=== PATIENT | female | born 1995 | race American Indian/Alaskan Native ===

== ENCOUNTER 2018-02-03 18:11 | Emergency (ER) | payer OTHER ==
[2018-02-03 18:42] VITALS: BP 108/62
[2018-02-03] MEDS ORDERED: MOTRIN PO ONE (18:42)
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
== END 2018-02-03 22:07 | disposition home or self-care (01) ==
LOC: ED 18:11
DX: S50.02XA Contusion of left elbow, initial encounter (principal); R51 Headache; E11.9 Type 2 diabetes mellitus without complications; V49.49XA Driver injured in collision with other motor vehicles in traffic accident, initial encounter; Y93.89 Activity, other specified; Y92.89 Other specified places as the place of occurrence of the external cause; Y99.8 Other external cause status
CPT/HCPCS: 99282

== ENCOUNTER 2018-06-02 15:46 | Emergency (ER) | payer OTHER ==
[2018-06-02 15:54] VITALS: BP 112/44
--- NOTE | 2018-06-02 16:23 | Emergency Department Report ---
ED Female HPI - General Chief complaint: Abdominal Pain Stated complaint: PELVIC PAIN Source: patient Mode of arrival: Ambulatory Limitations: No Limitations - History of Present Illness Initial comments: This is a 23-year-old female who presents with elevated in since yesterday. Last menstrual period was 02/11/2019, 0. She states she took a home test yesterday which was negative. She was seen by her FILLER WIPER Dr. Rockwell who placed her on Provera. Patient states she has not been able to mushroom picker prescription. She is now reporting pelvic pain that is intermittent since yesterday and nausea without vomiting. She denies dysuria, frequency, urgency, vaginal discharge or bleeding. MD Complaint: pelvic pain Onset/Timin -: days(s) Location: suprapubic Radiation: non-radiating Severity: moderate Severity scale (0 -10): 7 Quality: sharp Consistency: intermittent Improves with: none Worsens with: none Are you Now?: No Last Menstrual Period: 02/11/18 EDC: 11/18/18 Associated Symptoms: denies other symptoms - Related Data Sexually active: Yes : 0 Para: 0 A: 0 Previous Rx's Medication Instructions Recorded Last Taken Type Ibuprofen [Motrin 600 MG tab] 600 mg PO Q8H PRN #30 tablet 02/03/18 Unknown Rx Allergies Allergy/AdvReac Type Severity Reaction Status Date / Time No Known Allergies Allergy Verified 06/02/18 15:52 ED Review of Systems ROS: Stated complaint: PELVIC PAIN Other details as noted in HPI Constitutional: denies: chills, fever Respiratory: denies: cough, shortness of breath, wheezing Cardiovascular: denies: chest pain, palpitations Gastrointestinal: abdominal pain (pelvic pain), nausea. denies: diarrhea Genitourinary: denies: urgency, dysuria, discharge Musculoskeletal: denies: back pain Neurological: denies: headache, weakness, paresthesias Psychiatric: denies: anxiety, depression ED Past Medical Hx - Past Medical History Previous Medical History?: No Hx Diabetes: Yes (prediabetic) - Surgical History Past Surgical History?: No - Social History Smoking Status: Never Smoker Substance Use Type: None - Medications Home Medications: Home Medications Medication Instructions Recorded Confirmed Last Taken Type Ibuprofen [Motrin 600 MG tab] 600 mg PO Q8H PRN #30 tablet 02/03/18 Unknown Rx ED Physical Exam - General Limitations: No Limitations General appearance: alert, in no apparent distress - Respiratory Respiratory exam: Present: normal lung sounds bilaterally. Absent: respiratory distress - Cardiovascular Cardiovascular Exam: Present: regular rate, normal rhythm. Absent: systolic murmur, diastolic murmur, rubs, gallop - GI/Abdominal GI/Abdominal exam: Present: soft, tenderness (suprapubic tenderness), normal bowel sounds. Absent: distended, guarding, rebound, rigid, organomegaly, mass, pulsatile mass, hernia - External exam: Present: normal external exam Speculum exam: Present: vaginal discharge (clear discharge). Absent: erythema, cervical discharge, vaginal bleeding, foreign body, tissue, laceration Bi-manual exam: Present: normal bi-manual exam - Back Exam Back exam: Absent: CVA tenderness (R), CVA tenderness (L), rash noted - Neurological Exam Neurological exam: Present: alert, oriented X3, normal gait - Psychiatric Psychiatric exam: Present: normal affect, normal mood - Skin Skin exam: Present: warm, dry, intact, normal color. Absent: rash ED Course Vital Signs 06/02/18 15:52 Temperature 98.8 F Pulse Rate 66 Respiratory 16 Rate Blood Pressure 112/44 O2 Sat by Pulse 99 Oximetry ED Medical Decision Making - Lab Data Lab Results 06/02/18 Range/Units 16:00 Urine Color Yellow (Yellow) Urine Turbidity Clear (Clear) Urine pH 6.0 (5.0-7.0) Ur Specific [place] 1.011 (1.003-1.030) Urine Protein <15 mg/dl (Negative) mg/dL Urine Glucose (UA) Neg (Negative) mg/dL Urine Ketones Neg (Negative) mg/dL Urine Blood Neg (Negative) Urine Nitrite Neg (Negative) Urine Bilirubin Neg (Negative) Urine Urobilinogen < 2.0 (<2.0) mg/dL Ur Leukocyte Esterase Neg (Negative) Urine WBC (Auto) < 1.0 (0.0-6.0) /HPF Urine RBC (Auto) < 1.0 (0.0-6.0) /HPF U Epithel Cells (Auto) 1.0 (0-13.0) /HPF Urine HCG, Qual Negative (Negative) - Radiology Data Radiology results: report reviewed FINAL REPORT EXAM: US PELVIC COMPLETE HISTORY: pelvic pain TECHNIQUE: Real-time sonography was performed of the pelvis transabdominally. Images are submitted for interpretation. PRIORS: None. FINDINGS: The uterus appears normal measuring 7.1 x 3.3 x 4.4 cm. The endometrial stripe appears normal measuring 8 mm. The right ovary appears normal measuring 3.1 x 1.9 x 3.4 cm. Multiple normal follicles are demonstrated. The left ovary appears normal measuring 3.7 x 2.3 x 3.1 cm. Multiple normal follicles are demonstrated. Color Doppler evaluation of the ovaries shows flow bilaterally. There is no free pelvic fluid. IMPRESSION: Normal pelvic ultrasound. - Medical Decision Making Patient was examined by me. Vitals are normal and patient is in no acute distress. Obtained labs and pelvic transvaginal ultrasound. Ultrasound dictated by radiologist report reviewed by myself. Wet prep obtained via pelvic exam, negative Trichomonas, clue cells, and yeast. Gonorrhea and chlamydia pending. All of the labs are unremarkable. Normal pelvic ultrasound. Amenorrhea Referral to a bagel maker for continued care. Patient informed of results. Patient discharged home in stable condition. Follow up with PCP in 2-3 days. Critical care attestation.: If time is entered above; I have spent that time in minutes in the direct care of this critically ill patient, excluding procedure time. ED Disposition Clinical Impression: Pelvic pain, Nausea, Amenorrhea Disposition: TO HOME OR SELFCARE Is pt being admited?: No Does the pt Need Aspirin: No Condition: Stable Instructions: Abdominal Pain (ED) Additional Instructions: Follow-up with your FILLER WIPER for further testing. Referrals: SAMSON EMERY MD [Primary Care Provider] - 3-5 Days [facility] [Provider Group] - 3-5 Days [facility] [Provider Group] - 3-5 Days Forms: Work/School Release Form(ED) Time of Disposition: 20:25
[2018-06-02 16:32] LABS: Bilirubin,Urine NEG (Negative); Blood,Urine NEG (Negative); Color,Urine Yellow (Yellow); Protein,Urine <15 mg/dL mg/dL (Negative); RBC,Urine < 1.0 /HPF (0.0-6.0); Urobilinogen,Urine < 2.0 mg/dL (<2.0); WBC,Urine < 1.0 /HPF (0.0-6.0)
[2018-06-02 16:36] LABS: HCG Qualitative,Urine Negative (Negative)
--- NOTE | 2018-06-02 20:18 | Ultrasound Report ---
FINAL REPORT EXAM: US PELVIC COMPLETE HISTORY: pelvic pain TECHNIQUE: Real-time sonography was performed of the pelvis transabdominally. Images are submitted f or interpretation. PRIORS: None. FINDINGS: The uterus appears normal measuring 7.1 x 3.3 x 4.4 cm. The endometrial stripe appears normal measuri ng 8 mm. The right ovary appears normal measuring 3.1 x 1.9 x 3.4 cm. Multiple normal follicles are demonstrat ed. The left ovary appears normal measuring 3.7 x 2.3 x 3.1 cm. Multiple normal follicles are demonstrate d. Color Doppler evaluation of the ovaries shows flow bilaterally. There is no free pelvic fluid. IMPRESSION: Normal pelvic ultrasound.
--- NOTE | 2018-06-02 20:20 | Ultrasound Report ---
FINAL REPORT EXAM: US TRANSVAGINAL HISTORY: pelvic pain TECHNIQUE: Real-time sonography was performed of the pelvis endovaginally. Images are submitted for interpretation. PRIORS: None. FINDINGS: The uterus appears normal measuring 7.1 x 3.3 x 4.4 cm. The endometrial stripe appears normal measuri ng 8 mm. The right ovary appears normal measuring 3.1 x 1.9 x 3.4 cm. Multiple normal follicles are demonstrat ed. The left ovary appears normal measuring 3.7 x 2.3 x 3.1 cm. Multiple normal follicles are demonstrate d. Color Doppler evaluation of the ovaries shows flow bilaterally. There is no free pelvic fluid. IMPRESSION: Normal pelvic ultrasound.
== END 2018-06-02 20:35 | disposition home or self-care (01) ==
LOC: ED 15:46
DX: N91.2 Amenorrhea, unspecified (principal); R10.2 Pelvic and perineal pain; R11.0 Nausea; E11.9 Type 2 diabetes mellitus without complications
CPT/HCPCS: 76830; 76856; 81001; 81025; 87210; 87591

== ENCOUNTER 2019-02-03 00:25 | Emergency (ER) | payer OTHER ==
[2019-02-03 00:42] VITALS: BP 106/67
[2019-02-03 01:47] LABS: Bacteria,Urine 1+ /HPF (Negative); Bilirubin,Urine NEG (Negative); Blood,Urine MOD (Negative); Color,Urine Yellow (Yellow); Mucus,Urine 1+ /HPF; Protein,Urine <15 mg/dL mg/dL (Negative); Urobilinogen,Urine < 2.0 mg/dL (<2.0)
[2019-02-03 01:48] LABS: HCG Qualitative,Urine Negative (Negative)
[2019-02-03] MEDS ORDERED: LIDOCAINE-MPF (1%) 10 MG/1 ML VIAL 5 ML INFILTRATI ONE (03:20)
[2019-02-03] MEDS ORDERED: AZITHROMYCIN 1 GM ORAL PWDR PACKET PO ONE (03:20)
--- NOTE | 2019-02-03 03:22 | Emergency Department Report ---
ED Female HPI - General Chief complaint: Abdominal Pain Stated complaint: STOMACH PAIN VAG DISCHARGE Time Seen by Provider: 02/03/19 03:07 Source: patient Mode of arrival: Ambulatory Limitations: No Limitations - History of Present Illness Initial comments: Patient is a 23-year-old female who presents to emergency room with complaints of intermittent suprapubic abdominal cramping that began 2 weeks ago. She states that she has associated clear/cloudy vaginal discharge which has a foul odor. Patient denies any fever, nausea, vomiting, diarrhea, chills, dysuria, any other symptoms. She was tolerating by mouth intake with no difficulty. She states that she does have an UI SOFTWARE ENGINEER that she can follow up with this week. She denies any past medical history or allergies to medications. Patient states that she is sexually active and is concerned for STDs. She denies any lesions or blisters present on the vagina. - Related Data Previous Rx's Medication Instructions Recorded Last Taken Type Ibuprofen [Motrin 600 MG tab] 600 mg PO Q8H PRN #30 tablet 02/03/18 Unknown Rx cephALEXin [Keflex] 500 mg PO BID 5 Days #10 capsule 02/03/19 Unknown Rx metroNIDAZOLE [Flagyl] 500 mg PO BID 7 Days #14 tab 02/03/19 Unknown Rx Allergies Allergy/AdvReac Type Severity Reaction Status Date / Time No Known Allergies Allergy Verified 06/02/18 15:52 ED Review of Systems ROS: Stated complaint: STOMACH PAIN VAG DISCHARGE Other details as noted in HPI Comment: All other systems reviewed and negative ED Past Medical Hx - Past Medical History Previous Medical History?: Yes Hx Diabetes: Yes (prediabetic) - Surgical History Past Surgical History?: No - Social History Smoking Status: Never Smoker Substance Use Type: Marijuana - Medications Home Medications: Home Medications Medication Instructions Recorded Confirmed Last Taken Type Ibuprofen [Motrin 600 MG tab] 600 mg PO Q8H PRN #30 tablet 02/03/18 Unknown Rx cephALEXin [Keflex] 500 mg PO BID 5 Days #10 capsule 02/03/19 Unknown Rx metroNIDAZOLE [Flagyl] 500 mg PO BID 7 Days #14 tab 02/03/19 Unknown Rx ED Physical Exam - General Limitations: No Limitations General appearance: alert, in no apparent distress - Head Head exam: Present: atraumatic, normocephalic - Eye Eye exam: Present: normal appearance - ENT ENT exam: Present: mucous membranes moist - Respiratory Respiratory exam: Present: normal lung sounds bilaterally. Absent: respiratory distress, wheezes, rales, rhonchi, stridor, chest wall tenderness, accessory muscle use, decreased breath sounds, prolonged expiratory - Cardiovascular Cardiovascular Exam: Present: regular rate, normal rhythm, normal heart sounds. Absent: systolic murmur, diastolic murmur, rubs, gallop - GI/Abdominal GI/Abdominal exam: Present: soft, normal bowel sounds. Absent: distended, tenderness, guarding, rebound, rigid - Speculum exam: Present: other (pt deferred) - Back Exam Back exam: Absent: CVA tenderness (R), CVA tenderness (L) - Neurological Exam Neurological exam: Present: alert, oriented X3 - Psychiatric Psychiatric exam: Present: normal affect, normal mood - Skin Skin exam: Present: warm, dry, intact ED Course Vital Signs 02/03/19 00:40 Temperature 98.0 F Pulse Rate 67 Respiratory 18 Rate Blood Pressure 106/67 O2 Sat by Pulse 100 Oximetry ED Medical Decision Making - Medical Decision Making Patient is a 23-year-old female who presents to emergency room with complaints of intermittent suprapubic abdominal cramping that began 2 weeks ago. She states that she has associated clear/cloudy vaginal discharge which has a foul odor. Patient denies any fever, nausea, vomiting, diarrhea, chills, dysuria, any other symptoms. She was tolerating by mouth intake with no difficulty. She states that she does have an UI SOFTWARE ENGINEER that she can follow up with this week. She denies any past medical history or allergies to medications. Patient states that she is sexually active and is concerned for STDs. She denies any lesions or blisters present on the vagina. pt is afebrile, no N/V, tolerating PO intake, no severe abd pain, no abdominal TTP, no guarding, no rebound, low concern for PID or TOA. UA shows bacteria and trace leukocyte esterase. Urine is negative. Patient treated prophylactically for G/C with ceftriaxone and azithromycin. Patient given prescription for Flagyl and Keflex. advised patient to take medication as prescribed. follow up with her UI SOFTWARE ENGINEER in the next 2-3 days. Please receive a full STD panel by her UI SOFTWARE ENGINEER or health department. Abstain from sexual intercourse for 10 days. please partner tested and treated as well. return to the emergency room for any new or worsening symptoms. - Differential Diagnosis STD, UTI, Vaginitis Critical care attestation.: If time is entered above; I have spent that time in minutes in the direct care of this critically ill patient, excluding procedure time. ED Disposition Clinical Impression: Vaginal discharge, Suprapubic cramping Disposition: TO HOME OR SELFCARE Is pt being admited?: No Does the pt Need Aspirin: No Condition: Stable Instructions: Sexually Transmitted Diseases (ED), Safe Sex (ED) Additional Instructions: take medication as prescribed. follow up with your UI SOFTWARE ENGINEER in the next 2-3 days. Please receive a full STD panel by your UI SOFTWARE ENGINEER or health department. Abstain from sexual intercourse for 10 days. please partner tested and treated as well. return to the emergency room for any new or worsening symptoms Prescriptions: metroNIDAZOLE [Flagyl] 500 mg PO BID 7 Days #14 tab cephALEXin [Keflex] 500 mg PO BID 5 Days #10 capsule Referrals: your, UI SOFTWARE ENGINEER [Other] - 2-[address] [facility] [place] [facility] [Outside] - 2-3 Days Time of Disposition: 03:28 Print Language: POLISH
== END 2019-02-03 04:10 | disposition home or self-care (01) ==
LOC: ED 00:25
DX: N89.8 Other specified noninflammatory disorders of vagina (principal); E11.9 Type 2 diabetes mellitus without complications; F12.10 Cannabis abuse, uncomplicated; Z79.1 Long term (current) use of non-steroidal anti-inflammatories (NSAID); Z79.899 Other long term (current) drug therapy
CPT/HCPCS: 81001; 81025; 87086; 96372; 99284; J0696

== ENCOUNTER 2019-08-03 11:29 | Emergency (ER) | payer OTHER ==
--- NOTE | 2019-08-03 11:46 | Emergency Department Report ---
Chief Complaint: Urogenital-Female Stated Complaint: PELVIC PAIN/DISCHARGE Time Seen by Provider: 08/03/19 11:43 - HPI History of Present Illness: CC VAG DC NOT SEXUALLY ACTIVE WITH MEN JUST ENDED MENSES NO BACK PAIN NO FEVER/ CHILLS NO ABD PAIN PCP CLOSED; DID NOT CALL OBGYN; URGENT CARE TOO EXPENSIVE 1 SEXUAL PARTNER- FEMALE NO SYMPTOMS PMH PRE DM RX ALLERGY LMP 2 DAYS AGO- NO SEX WITH MEN - ROS Review of Systems: VAG DC - Exam Vital Signs: NORMAL Physical Exam: A/O NAD AMBULATORY ON PHONE DURING H/P ABD SNT NO CVA TENDERNESS MSE screening note: Focused history and physical exam performed. Due to findings the following was ordered: ED Disposition for MSE Condition: Stable
== END 2019-08-03 12:07 | disposition home or self-care (01) ==
LOC: ED 11:29
DX: N89.8 Other specified noninflammatory disorders of vagina (principal); Z53.21 Procedure and treatment not carried out due to patient leaving prior to being seen by health care provider

== ENCOUNTER 2020-06-28 20:02 | Emergency (ER) | payer SELFPAY ==
[2020-06-28 20:11] VITALS: BP 119/74
[2020-06-28] MEDS ORDERED: MECLIZINE 25 MG TAB PO ONE (20:13)
[2020-06-28] MEDS ORDERED: ASPIRIN EC 81 MG TAB PO ONE (20:13)
[2020-06-28] MEDS ORDERED: FAMOTIDINE 20 MG TAB PO ONE (20:13)
--- NOTE | 2020-06-28 20:40 | Emergency Department Report ---
ED General Adult HPI - General Chief complaint: Dyspnea/Respdistress Stated complaint: SOB/CHEST PAIN/DIZZINESS Source: patient Mode of arrival: Ambulatory Limitations: No Limitations - History of Present Illness Initial comments: Patient is a 25-year-old -Japanese female with no past medical history presents to the ED with complaint of acute onset persistent chest pain, shortness of breath, lightheadedness persistently for the last 2 months, worse in the last 1 week. Patient states that she has been taking [id number] medication with no relief. Patient denies dizziness, syncope, palpitations, sore throat, nausea, vomiting, diarrhea, abdominal pain, traumatic injury, heavy lifting, change in vision, headache or neck pain, cough, fever and chills. MD Complaint: Lightheadedness, chest pain, dyspnea, headache -: Sudden, month(s) (2) Location: chest Radiation: non-radiation Severity scale (0 -10): 5 Quality: aching, dull Consistency: intermittent Improves with: none Worsens with: movement Associated Symptoms: denies other symptoms, chest pain, headaches, loss of appetite, malaise, shortness of breath. denies: confusion, cough, diaphoresis, fever/chills, nausea/vomiting, rash, seizure, other Treatments Prior to Arrival: none - Related Data Previous Rx's Medication Instructions Recorded Last Taken Type Ibuprofen [Motrin 600 MG tab] 600 mg PO Q8H PRN #30 tablet 02/03/18 Unknown Rx cephALEXin [Keflex] 500 mg PO BID 5 Days #10 capsule 02/03/19 Unknown Rx metroNIDAZOLE [Flagyl] 500 mg PO BID 7 Days #14 tab 02/03/19 Unknown Rx Nitrofurantoin Kay/M-Cryst 100 mg PO Q12HR 7 Days #14 capsule 01/25/20 Unknown Rx [Macrobid CAP] Famotidine [Pepcid] 20 mg PO BID #60 tablet 06/29/20 Unknown Rx Meclizine HCl 25 mg PO Q8H PRN #30 tablet 06/29/20 Unknown Rx Naproxen 500 mg PO Q12H PRN #20 tablet 06/29/20 Unknown Rx hydrOXYzine PAMOATE [Vistaril] 25 mg PO Q8HR PRN #30 capsule 06/29/20 Unknown Rx Allergies Allergy/AdvReac Type Severity Reaction Status Date / Time No Known Allergies Allergy Verified 08/03/19 11:41 ED Review of Systems ROS: Stated complaint: SOB/CHEST PAIN/DIZZINESS Other details as noted in HPI Constitutional: denies: chills, fever Eyes: denies: eye pain, eye discharge, vision change ENT: denies: ear pain, throat pain Respiratory: shortness of breath. denies: cough, wheezing Cardiovascular: chest pain. denies: palpitations Endocrine: no symptoms reported Gastrointestinal: denies: abdominal pain, nausea, diarrhea Genitourinary: denies: urgency, dysuria, discharge Musculoskeletal: denies: back pain, joint swelling, arthralgia Skin: denies: rash, lesions Neurological: headache, other (lightheadedness). denies: weakness, paresthesias Psychiatric: denies: anxiety, depression Hematological/Lymphatic: denies: easy bleeding, easy bruising ED Past Medical Hx - Past Medical History Previous Medical History?: No Hx Diabetes: Yes (prediabetic) - Surgical History Past Surgical History?: No - Social History Smoking Status: Never Smoker Substance Use Type: Marijuana - Medications Home Medications: Home Medications Medication Instructions Recorded Confirmed Last Taken Type Ibuprofen [Motrin 600 MG tab] 600 mg PO Q8H PRN #30 tablet 02/03/18 Unknown Rx cephALEXin [Keflex] 500 mg PO BID 5 Days #10 capsule 02/03/19 Unknown Rx metroNIDAZOLE [Flagyl] 500 mg PO BID 7 Days #14 tab 02/03/19 Unknown Rx Nitrofurantoin Kay/M-Cryst 100 mg PO Q12HR 7 Days #14 capsule 01/25/20 Unknown Rx [Macrobid CAP] Famotidine [Pepcid] 20 mg PO BID #60 tablet 06/29/20 Unknown Rx Meclizine HCl 25 mg PO Q8H PRN #30 tablet 06/29/20 Unknown Rx Naproxen 500 mg PO Q12H PRN #20 tablet 06/29/20 Unknown Rx hydrOXYzine PAMOATE [Vistaril] 25 mg PO Q8HR PRN #30 capsule 06/29/20 Unknown Rx ED Physical Exam - General Limitations: No Limitations General appearance: alert, in no apparent distress - Head Head exam: Present: atraumatic, normocephalic, normal inspection - Eye Eye exam: Present: normal appearance, PERRL, EOMI Pupils: Present: normal accommodation - ENT ENT exam: Present: normal exam, normal orophraynx, mucous membranes moist, TM's normal bilaterally, normal external ear exam - Neck Neck exam: Present: normal inspection, full ROM - Respiratory Respiratory exam: Present: normal lung sounds bilaterally. Absent: respiratory distress, wheezes, rales, stridor, chest wall tenderness, accessory muscle use, decreased breath sounds, prolonged expiratory - Cardiovascular Cardiovascular Exam: Present: regular rate, normal rhythm, normal heart sounds. Absent: systolic murmur, diastolic murmur, rubs, gallop - GI/Abdominal GI/Abdominal exam: Present: soft, normal bowel sounds. Absent: distended, tenderness, guarding, rigid, hyperactive bowel sounds, hypoactive bowel sounds, organomegaly - Extremities Exam Extremities exam: Present: normal inspection, full ROM, normal capillary refill - Back Exam Back exam: Present: normal inspection, full ROM. Absent: tenderness, CVA tenderness (R), CVA tenderness (L), muscle spasm, vertebral tenderness - Neurological Exam Neurological exam: Present: alert, oriented X3, CN II-XII intact, normal gait, reflexes normal - Psychiatric Psychiatric exam: Present: normal affect, normal mood - Skin Skin exam: Present: warm, dry, intact, normal color. Absent: rash ED Course Vital Signs 06/28/20 20:05 Temperature 98.4 F Pulse Rate 68 Respiratory 16 Rate Blood Pressure 119/74 O2 Sat by Pulse 99 Oximetry ED Medical Decision Making - Lab Data Result diagrams: 06/28/20 20:28 06/28/20 20:28 - Radiology Data Radiology results: report reviewed, image reviewed Findings [facility] [address] [place] [address] Cat Scan Report Signed Patient: ARMANDO SÁNCHEZ MR#: [id number] : 1995 Acct:[id number] Age/Sex: 25 / F ADM Date: 06/28/20 Loc: ED Attending Dr: Ordering Physician: SANDY ROSAS Date of Service: 06/28/20 Procedure(s): CT head/brain wo con Accession Number(s): [id number] cc: SANDY ROSAS CT head/brain wo con INDICATION / CLINICAL INFORMATION: 25 years Female; Patient complains of dizziness. TECHNIQUE: Routine CT head without contrast. All CT scans at this location are performed using CT dose reduction for ALARA by means of automated exposure control. COMPARISON: None. FINDINGS: BRAIN / INTRACRANIAL CONTENTS: The brain demonstrate appropriate attenuation. The ventricular system is within normal limits in size and configuration. There is no CT evidence of acute intracranial hemorrhage or significant mass effect. ORBITS: No significant abnormality of visualized orbits. SINUSES / MASTOIDS: No significant abnormality in the visualized paranasal sinuses or mastoid air cells. CRANIOCERVICAL JUNCTION: No significant abnormality. ADDITIONAL FINDINGS: None. IMPRESSION: 1. There is no CT evidence of acute intracranial process. Signer Name: Fredrick Jeffrey MD Signed: 06/28/2020 9:50 PM Workstation Name: [id number] Transcribed By: MR Dictated By: Fredrick Jeffrey MD Electronically Authenticated By: Fredrick Jeffrey MD Signed Date/Time: 06/28/202149 DD/ 46 TD/TT: Findings [facility] [address] [place] [address] XRay Report Signed Patient: ARMANDO SÁNCHEZ MR#: [id number] : 1995 Acct:[id number] Age/Sex: 25 / F ADM Date: 06/28/20 Loc: ED Attending Dr: Ordering Physician: SANDY ROSAS Date of Service: 06/28/20 Procedure(s): XR chest 1V ap Accession Number(s): [id number] cc: SANDY ROSAS Fluoro Time In Minutes: XR chest 1V ap INDICATION / CLINICAL INFORMATION: dizziness. COMPARISON: None available. FINDINGS: SUPPORT DEVICES: None. HEART /PULMONARY VASCULATURE: No significant abnormality. LUNGS / PLEURA: No significant pulmonary or pleural abnormality. No pneumothorax. ADDITIONAL FINDINGS: No significant additional findings. IMPRESSION: 1. No acute findings. Signer Name: Angie Go MD Signed: 06/29/2020 12:02 AM Workstation Name: [id number] Transcribed By: ALEXANDRE Dictated By: ANGIE GO MD Electronically Authenticated By: ANGIE GO MD Signed Date/Time: 06/29/201 DD/ TD/TT: - Medical Decision Making This is a 25-year-old -Japanese female with no past medical history presents to the ED with complaint of acute onset persistent chest pain, shortness of breath, lightheadedness persistently for the last 2 months, worse in the last 1 week. Patient states that she has been taking lukd-lbe-[id number] medication with no relief. In the ED, patient is alert and oriented x3 and is not in distress. - Differential Diagnosis Bronchitis; pneumonia; anxiety; PE; ACS; dehydration Critical care attestation.: If time is entered above; I have spent that time in minutes in the direct care of this critically ill patient, excluding procedure time. ED Disposition Clinical Impression: Intermittent lightheadedness, Acute nonspecific chest pain with low risk of coronary artery disease, Anxiety as acute reaction to exceptional stress GERD (gastroesophageal reflux disease) Qualifiers: Esophagitis presence: without esophagitis Qualified Code(s): K21.9 - Gastro- esophageal reflux disease without esophagitis Disposition: DC-01 TO HOME OR SELFCARE Is pt being admited?: No Does the pt Need Aspirin: No Condition: Stable Instructions: Chest Pain (ED), Nonspecific Chest Pain, Adult, [id number], Chest Wall Pain, [id number], Gastroesophageal Reflux Disease, Adult, [id number] Additional Instructions: All lab test results were reviewed and are all nonactionable. Chest x-ray shows no acute cardiopulmonary abnormalities or pneumonitis. The head CT scan without contrast showed no acute intracranial abnormalities or hemorrhage. Therefore take medication as needed, drink plenty of fluids and follow-up with your primary care physician in 5 to 7 days for reevaluation. Return to the ED immediately if symptoms get worse. Prescriptions: Meclizine HCl 25 mg PO Q8H PRN #30 tablet PRN Reason: dizziness Naproxen 500 mg PO Q12H PRN #20 tablet PRN Reason: Pain , Severe (7-10) Famotidine [Pepcid] 20 mg PO BID #60 tablet hydrOXYzine PAMOATE [Vistaril] 25 mg PO Q8HR PRN #30 capsule PRN Reason: Anxiety Referrals: PRIMARY CARE, [Primary Care Provider] - 3-5 Days [facility] [Provider Group] - 7-10 days Time of Disposition: 00:43 Print Language: CITIZEN OF [place]
[2020-06-28 21:08] LABS: Basophils % (Auto) 0.5 % (0.0-1.8); Eosinophils # (Auto) 0.1 K/mm3 (0.0-0.4); Eosinophils % (Auto) 1.8 % (0.0-4.3); Hemoglobin 12.7 gm/dl (10.1-14.3); Lymphocytes # (Auto) 2.3 K/mm3 (1.2-5.4); Lymphocytes % (Auto) 48.8 % (13.4-35.0); Mean Corpuscular HGB Conc 34 % (30-34); Mean Corpuscular Volume 89 fl (79-97); Monocytes # (Auto) 0.4 K/mm3 (0.0-0.8); Platelet Count 200 K/mm3 (140-440); Red Blood Count 4.15 M/mm3 (3.65-5.03); Red Cell Distribution Width 12.7 % (13.2-15.2)
[2020-06-28 21:37] LABS: Alanine Aminotransferase 8 units/L (7-56); Albumin 3.7 g/dL (3.9-5); Blood Urea Nitrogen 9 mg/dL (7-17); Calcium 8.4 mg/dL (8.4-10.2); Hemolysis Index 3
[2020-06-28 21:41] LABS: BUN/Creatinine Ratio 13
--- NOTE | 2020-06-28 21:55 | Cat Scan Report ---
CT head/brain wo con INDICATION / CLINICAL INFORMATION: 25 years Female; Patient complains of dizziness. TECHNIQUE: Routine CT head without contrast. All CT scans at this location are performed using CT dos e reduction for ALARA by means of automated exposure control. COMPARISON: None. FINDINGS: BRAIN / INTRACRANIAL CONTENTS: The brain demonstrate appropriate attenuation. The ventricular system is within normal limits in size and configuration. There is no CT evidence of acute intracranial hemo rrhage or significant mass effect. ORBITS: No significant abnormality of visualized orbits. SINUSES / MASTOIDS: No significant abnormality in the visualized paranasal sinuses or mastoid air jemma ls. CRANIOCERVICAL JUNCTION: No significant abnormality. ADDITIONAL FINDINGS: None. IMPRESSION: 1. There is no CT evidence of acute intracranial process. Signer Name: Fredrick Jeffrey MD Signed: 06/28/2020 9:50 PM Workstation Name: [id number]
[2020-06-28 22:54] LABS: Bilirubin,Urine NEG (Negative); Blood,Urine NEG (Negative); Color,Urine Straw (Yellow); Mucus,Urine FEW /HPF; Protein,Urine <15 mg/dL mg/dL (Negative); Urobilinogen,Urine < 2.0 mg/dL (<2.0); WBC,Urine < 1.0 /HPF (0.0-6.0)
[2020-06-28 23:01] LABS: HCG Qualitative,Urine Negative (Negative)
--- NOTE | 2020-06-29 00:07 | XRay Report ---
XR chest 1V ap INDICATION / CLINICAL INFORMATION: dizziness. COMPARISON: None available. FINDINGS: SUPPORT DEVICES: None. HEART /PULMONARY VASCULATURE: No significant abnormality. LUNGS / PLEURA: No significant pulmonary or pleural abnormality. No pneumothorax. ADDITIONAL FINDINGS: No significant additional findings. IMPRESSION: 1. No acute findings. Signer Name: Pacheco Go MD Signed: 06/29/2020 12:02 AM Workstation Name: [id number]
== END 2020-06-29 00:53 | disposition home or self-care (01) ==
LOC: ED 20:02
DX: I25.10 Atherosclerotic heart disease of native coronary artery without angina pectoris (principal); F41.9 Anxiety disorder, unspecified; K21.9 Gastro-esophageal reflux disease without esophagitis; E11.9 Type 2 diabetes mellitus without complications; F12.10 Cannabis abuse, uncomplicated; Z79.899 Other long term (current) drug therapy
CPT/HCPCS: 36415; 70450; 71045; 80053; 81001; 81025; 84484; 85025; 85379; 93005